=== PATIENT | female | born 2000 | race Caucasian/White ===

== ENCOUNTER 2020-07-14 11:41 | Emergency (ER) | payer BC ==
[~2020-07-14] VITALS: Ht 165.1 cm; Wt 104.5 kg
[2020-07-14 11:49] VITALS: BP 141/86; TEMP 97.9
[2020-07-14] MEDS ORDERED: AMOXICILLIN 8751 TAB PO (12:06)
[2020-07-14 13:00] VITALS: PULSE 70
== END 2020-07-14 13:00 | disposition home or self-care (01) ==
LOC: COL.ER 11:41
DX: S61.432A Puncture wound without foreign body of left hand, initial encounter (principal); S31.134A Puncture wound of abdominal wall without foreign body, left lower quadrant without penetration into peritoneal cavity, initial encounter; S50.812A Abrasion of left forearm, initial encounter; F17.200 Nicotine dependence, unspecified, uncomplicated; W54.0XXA Bitten by dog, initial encounter; Y92.009 Unspecified place in unspecified non-institutional (private) residence as the place of occurrence of the external cause